=== PATIENT | female | born 1950 | race Caucasian/White ===

== ENCOUNTER 2021-08-19 21:55 | Inpatient (IN) | payer MEDICARE, OTHER ==
[2021-08-19] MEDS ORDERED: Sodium Chloride 0.9% 1,000 ML IV STA (22:04)
[2021-08-19] MEDS ORDERED: niCARdipine/Normal Saline 20 MG/200 ML BAG IV SCH (22:15)
[2021-08-19 22:40] LABS: BLOOD UREA NITROGEN,BUN 18 mg/dL (7.0-18.0); CARBON DIOXIDE,CO2 25.5 mmol/L (21.0-32.0); CHLORIDE,CL 102 mmol/L (98-107); GLUCOSE RANDOM 112 mg/dL (74-106); POTASSIUM,K 3.9 mmol/L (3.5-5.1); SODIUM,NA 144 mmol/L (136-145)
[2021-08-19 22:41] LABS: ESTIMATED GFR 54.5 ml/min
[2021-08-19] MEDS ORDERED: Iopamidol 755 MG/ML 500 ML Multipack Bottle IVPUSH STA (23:43)
[2021-08-20] MEDS ORDERED: Sodium Chloride 0.9% 2.5 ML Syringe FLUSH PRN (07:56)
[2021-08-20] MEDS ORDERED: Ondansetron 4 MG/2 ML SDV IVPUSH PRN (07:56)
[2021-08-20] MEDS ORDERED: Sodium Chloride 0.9% 10 ML Syringe FLUSH PRN (07:56)
[2021-08-20] MEDS ORDERED: Acetaminophen 325 MG Tab PO PRN (07:56)
[2021-08-20] MEDS ORDERED: Labetalol 100 MG/20 ML MDV IVPUSH PRN (07:58)
[2021-08-20 08:56] LABS: HEMOGLOBIN A1C 6.2 %
[2021-08-20] MEDS: Aspirin 81 MG Tab.Chew PO SCH (09:30)
[2021-08-20] MEDS: atorvaSTATin 40 MG Tab PO SCH (20:28)
[2021-08-20] MEDS: Enoxaparin 40 MG/0.4 ML Syringe SUBCUT SCH (20:28)
[2021-08-21] MEDS: Levothyroxine 75 MCG Tab PO SCH (06:43)
[2021-08-21 07:11] LABS: BLOOD UREA NITROGEN,BUN 20 mg/dL (7.0-18.0); CARBON DIOXIDE,CO2 26.6 mmol/L (21.0-32.0); CHLORIDE,CL 106 mmol/L (98-107); GLUCOSE RANDOM 105 mg/dL (74-106); SODIUM,NA 140 mmol/L (136-145)
[2021-08-21 07:18] LABS: ESTIMATED GFR > 60.0 ml/min
[2021-08-21] MEDS: Aspirin 81 MG Tab.Chew PO SCH (08:47)
[2021-08-21] MEDS: Clopidogrel 75 MG Tab PO SCH (11:55)
[2021-08-21] MEDS: Enoxaparin 40 MG/0.4 ML Syringe SUBCUT SCH (21:07)
[2021-08-21] MEDS: atorvaSTATin 40 MG Tab PO SCH (21:08)
[2021-08-22 05:58] LABS: BLOOD UREA NITROGEN,BUN 15 mg/dL (7.0-18.0); CARBON DIOXIDE,CO2 27.4 mmol/L (21.0-32.0); CHLORIDE,CL 106 mmol/L (98-107); GLUCOSE RANDOM 103 mg/dL (74-106); POTASSIUM,K 3.9 mmol/L (3.5-5.1); SODIUM,NA 141 mmol/L (136-145)
[2021-08-22 06:00] LABS: ESTIMATED GFR > 60.0 ml/min
[2021-08-22] MEDS: Levothyroxine 75 MCG Tab PO SCH (06:38)
[2021-08-22] MEDS: Clopidogrel 75 MG Tab PO SCH (08:22)
[2021-08-22] MEDS: Aspirin 81 MG Tab.Chew PO SCH (08:22)
[2021-08-22] MEDS: Losartan 50 MG Tab PO SCH (10:14)
[2021-08-22] MEDS: Hydrocortisone 1% Crm 30 GM Tube TOP PRN (17:02)
[2021-08-22] MEDS: Enoxaparin 40 MG/0.4 ML Syringe SUBCUT SCH (20:38)
[2021-08-22] MEDS: atorvaSTATin 40 MG Tab PO SCH (20:38)
[2021-08-23] MEDS: Levothyroxine 75 MCG Tab PO SCH (06:30)
[2021-08-23 07:46] LABS: BLOOD UREA NITROGEN,BUN 14 mg/dL (7.0-18.0); CARBON DIOXIDE,CO2 26.8 mmol/L (21.0-32.0); CHLORIDE,CL 107 mmol/L (98-107); GLUCOSE RANDOM 100 mg/dL (74-106); POTASSIUM,K 3.8 mmol/L (3.5-5.1); SODIUM,NA 142 mmol/L (136-145)
[2021-08-23 07:48] LABS: ESTIMATED GFR > 60.0 ml/min
[2021-08-23] MEDS: Clopidogrel 75 MG Tab PO SCH (08:21)
[2021-08-23] MEDS: Losartan 50 MG Tab PO SCH (08:21)
[2021-08-23] MEDS: Aspirin 81 MG Tab.Chew PO SCH (08:21)
[2021-08-23] MEDS: Hydrocortisone 1% Crm 30 GM Tube TOP PRN (12:21)
[2021-08-23] MEDS: atorvaSTATin 40 MG Tab PO SCH (20:09)
[2021-08-23] MEDS: Enoxaparin 40 MG/0.4 ML Syringe SUBCUT SCH (20:09)
[2021-08-24] MEDS: Levothyroxine 75 MCG Tab PO SCH (06:38)
[2021-08-24 07:07] LABS: BLOOD UREA NITROGEN,BUN 19 mg/dL (7.0-18.0); CARBON DIOXIDE,CO2 24.5 mmol/L (21.0-32.0); CHLORIDE,CL 105 mmol/L (98-107); GLUCOSE RANDOM 98 mg/dL (74-106); SODIUM,NA 139 mmol/L (136-145)
[2021-08-24 07:10] LABS: ESTIMATED GFR > 60.0 ml/min
[2021-08-24] MEDS: Aspirin 81 MG Tab.Chew PO SCH (09:33)
[2021-08-24] MEDS: Losartan 50 MG Tab PO SCH (09:34)
[2021-08-24] MEDS: Clopidogrel 75 MG Tab PO SCH (09:34)
[2021-08-24] MEDS: Hydrocortisone 1% Crm 30 GM Tube TOP PRN (09:35)
[2021-08-24] MEDS: atorvaSTATin 40 MG Tab PO SCH (21:52)
[2021-08-24] MEDS: Enoxaparin 40 MG/0.4 ML Syringe SUBCUT SCH (21:52)
[2021-08-25] MEDS: Levothyroxine 75 MCG Tab PO SCH ×2 (06:17→06:39)
[2021-08-25] MEDS: Losartan 50 MG Tab PO SCH (09:32)
[2021-08-25] MEDS: Aspirin 81 MG Tab.Chew PO SCH (09:32)
[2021-08-25] MEDS: Clopidogrel 75 MG Tab PO SCH (09:32)
[2021-08-25] MEDS: Enoxaparin 40 MG/0.4 ML Syringe SUBCUT SCH (21:01)
[2021-08-25] MEDS: atorvaSTATin 40 MG Tab PO SCH (21:01)
[2021-08-26] MEDS: Levothyroxine 75 MCG Tab PO SCH (06:48)
[2021-08-26] MEDS: Clopidogrel 75 MG Tab PO SCH (08:38)
[2021-08-26] MEDS: Losartan 50 MG Tab PO SCH (08:38)
[2021-08-26] MEDS: Aspirin 81 MG Tab.Chew PO SCH (08:38)
[2021-08-26] MEDS: atorvaSTATin 40 MG Tab PO SCH (21:25)
[2021-08-26] MEDS: Enoxaparin 40 MG/0.4 ML Syringe SUBCUT SCH (21:26)
[2021-08-27] MEDS: Levothyroxine 75 MCG Tab PO SCH (07:23)
[2021-08-27] MEDS: Aspirin 81 MG Tab.Chew PO SCH (09:13)
[2021-08-27] MEDS: Clopidogrel 75 MG Tab PO SCH (09:13)
[2021-08-27] MEDS: Losartan 50 MG Tab PO SCH (09:13)
[2021-08-27 15:32] LABS: CARBON DIOXIDE,CO2 27.7 mmol/L (21.0-32.0); POTASSIUM,K 4.3 mmol/L (3.5-5.1)
[2021-08-27 15:33] LABS: ESTIMATED GFR 48.8 ml/min
[2021-08-27] MEDS: Enoxaparin 40 MG/0.4 ML Syringe SUBCUT SCH (20:44)
[2021-08-27] MEDS: atorvaSTATin 40 MG Tab PO SCH (20:44)
[2021-08-28] MEDS: Levothyroxine 75 MCG Tab PO SCH (06:39)
[2021-08-28 07:21] LABS: BLOOD UREA NITROGEN,BUN 19 mg/dL (7.0-18.0); CARBON DIOXIDE,CO2 25.1 mmol/L (21.0-32.0); CHLORIDE,CL 101 mmol/L (98-107); GLUCOSE RANDOM 91 mg/dL (74-106); POTASSIUM,K 3.7 mmol/L (3.5-5.1); SODIUM,NA 134 mmol/L (136-145)
[2021-08-28 07:22] LABS: ESTIMATED GFR > 60.0 ml/min
[2021-08-28] MEDS: Aspirin 81 MG Tab.Chew PO SCH (10:42)
[2021-08-28] MEDS: Cephalexin 500 MG Cap PO SCH ×2 (10:42→21:39)
[2021-08-28] MEDS: Clopidogrel 75 MG Tab PO SCH (10:42)
[2021-08-28] MEDS: atorvaSTATin 40 MG Tab PO SCH (21:39)
[2021-08-29] MEDS: Levothyroxine 75 MCG Tab PO SCH (06:39)
[2021-08-29 07:13] LABS: BLOOD UREA NITROGEN,BUN 17 mg/dL (7.0-18.0); CARBON DIOXIDE,CO2 24.2 mmol/L (21.0-32.0); CHLORIDE,CL 101 mmol/L (98-107); GLUCOSE RANDOM 95 mg/dL (74-106); POTASSIUM,K 3.8 mmol/L (3.5-5.1); SODIUM,NA 133 mmol/L (136-145)
[2021-08-29 07:17] LABS: ESTIMATED GFR > 60.0 ml/min
[2021-08-29] MEDS ORDERED: Magnesium Sulfate/Water 2 GM in Premix Bag 1 BAG IV ONE (07:51)
[2021-08-29] MEDS: Clopidogrel 75 MG Tab PO SCH (09:21)
[2021-08-29] MEDS: Cephalexin 500 MG Cap PO SCH ×2 (09:21→20:21)
[2021-08-29] MEDS: Aspirin 81 MG Tab.Chew PO SCH (09:21)
[2021-08-29] MEDS: atorvaSTATin 40 MG Tab PO SCH (20:21)
[2021-08-30] MEDS: Levothyroxine 75 MCG Tab PO SCH (06:41)
[2021-08-30 07:20] LABS: BLOOD UREA NITROGEN,BUN 17 mg/dL (7.0-18.0); CARBON DIOXIDE,CO2 29.1 mmol/L (21.0-32.0); CHLORIDE,CL 104 mmol/L (98-107); GLUCOSE RANDOM 90 mg/dL (74-106); POTASSIUM,K 3.7 mmol/L (3.5-5.1); SODIUM,NA 140 mmol/L (136-145)
[2021-08-30 07:23] LABS: ESTIMATED GFR > 60.0 ml/min
[2021-08-30] MEDS: Cephalexin 500 MG Cap PO SCH ×2 (09:34→21:16)
[2021-08-30] MEDS: Aspirin 81 MG Tab.Chew PO SCH (09:34)
[2021-08-30] MEDS: Clopidogrel 75 MG Tab PO SCH (09:34)
[2021-08-30] MEDS: atorvaSTATin 40 MG Tab PO SCH (21:16)
[2021-08-31] MEDS: Levothyroxine 75 MCG Tab PO SCH (06:35)
[2021-08-31] MEDS: Cephalexin 500 MG Cap PO SCH ×2 (10:45→20:59)
[2021-08-31] MEDS: Losartan 50 MG Tab PO SCH (10:45)
[2021-08-31] MEDS: Clopidogrel 75 MG Tab PO SCH (10:45)
[2021-08-31] MEDS: Aspirin 81 MG Tab.Chew PO SCH (10:45)
[2021-08-31] MEDS: atorvaSTATin 40 MG Tab PO SCH (20:59)
[2021-09-01] MEDS: Levothyroxine 75 MCG Tab PO SCH (06:46)
[2021-09-01] MEDS: Aspirin 81 MG Tab.Chew PO SCH (08:34)
[2021-09-01] MEDS: Losartan 50 MG Tab PO SCH (08:35)
[2021-09-01] MEDS: Clopidogrel 75 MG Tab PO SCH (08:35)
[2021-09-01] MEDS: Cephalexin 500 MG Cap PO SCH ×2 (08:35→19:59)
[2021-09-01] MEDS: atorvaSTATin 40 MG Tab PO SCH (19:59)
[2021-09-02] MEDS: Levothyroxine 75 MCG Tab PO SCH (06:32)
[2021-09-02] MEDS: Aspirin 81 MG Tab.Chew PO SCH (11:19)
[2021-09-02] MEDS: Enoxaparin 40 MG/0.4 ML Syringe SUBCUT SCH (11:19)
[2021-09-02] MEDS: Clopidogrel 75 MG Tab PO SCH (11:19)
[2021-09-02] MEDS: Cephalexin 500 MG Cap PO SCH (11:19)
[2021-09-02] MEDS: Losartan 50 MG Tab PO SCH ×2 (11:20→11:26)
[2021-09-02] MEDS: atorvaSTATin 40 MG Tab PO SCH (20:25)
[2021-09-03] MEDS: Levothyroxine 75 MCG Tab PO SCH (06:31)
[2021-09-03] MEDS: Enoxaparin 40 MG/0.4 ML Syringe SUBCUT SCH (08:27)
[2021-09-03] MEDS: Clopidogrel 75 MG Tab PO SCH (08:27)
[2021-09-03] MEDS: Losartan 50 MG Tab PO SCH (08:27)
[2021-09-03] MEDS: Aspirin 81 MG Tab.Chew PO SCH (08:30)
== END 2021-09-03 14:05 | DRG 65 ==
LOC: MW.ED 21:55 → MW.MS 08-20 00:20 → OBSVTOIN 08-20 10:17 → MW.MS 08-20 13:34
PROVIDERS: ADMIT Internal Medicine; ATTEND Internal Medicine
DX: I63.9 Cerebral infarction, unspecified (principal); G81.91 Hemiplegia, unspecified affecting right dominant side; Z68.41 Body mass index [BMI] 40.0-44.9, adult; N39.0 Urinary tract infection, site not specified; R29.701 NIHSS score 1; Z79.890 Hormone replacement therapy; Z66 Do not resuscitate; Z51.5 Encounter for palliative care; Z20.822 Contact with and (suspected) exposure to COVID-19; I63.522 Cerebral infarction due to unspecified occlusion or stenosis of left anterior cerebral artery; R47.01 Aphasia; G31.84 Mild cognitive impairment of uncertain or unknown etiology; B95.61 Methicillin susceptible Staphylococcus aureus infection as the cause of diseases classified elsewhere; I10 Essential (primary) hypertension; E03.9 Hypothyroidism, unspecified; E66.01 Morbid (severe) obesity due to excess calories; Z79.82 Long term (current) use of aspirin; Z90.49 Acquired absence of other specified parts of digestive tract; Z79.899 Other long term (current) drug therapy; Z98.891 History of uterine scar from previous surgery
CPT/HCPCS: 36415; 70450; 70496; 70498; 71045; 80053; 80061; 80305; 80307; 81003; 83036; 84443; 84484; 85025; 85610; 85730; 93005; 93306; 96360; 96361 ×2; 99285; A9270; J7030; Q9967; U0002; 70551; 70551-26; 80048; 81001; 81240; 83735; 85300; 85301; 85302; 85303; 85305; 85306; 85613; 86147; 87086; 87088; 87186; 92507-GN; 92523-GN-52; 93010; 93307; 97110-GP; 97112-GP; 97116-GP; 97140-GP; 97162-GP; 97166-GO; 97530-GP; 97542-GP; 99223; 99231; 99232; 99233; 99239; J1650; J3475

== ENCOUNTER 2023-06-24 14:36 | Emergency (ER) | payer BC, MEDICARE ==
[2023-06-24] MEDS ORDERED: Sodium Chloride 0.9% 2.5 ML Syringe FLUSH PRN (14:39)
[2023-06-24] MEDS ORDERED: Sodium Chloride 0.9% 10 ML Syringe FLUSH PRN (14:39)
[2023-06-24 14:54] LABS: BASOPHILS ABSOLUTE AUTO 0.01 K/uL (0.00-0.20); BASOPHILS PERCENT AUTO 0.2 % (0.0-1.0); EOSINOPHILS ABSOLUTE AUTO 0.02 K/uL (0.00-0.45); EOSINOPHILS PERCENT AUTO 0.3 % (0.0-6.0); HEMATOCRIT 36.5 % (37.0-47.0); HEMOGLOBIN 12.1 g/dL (12.0-16.0); IMMATURE GRAN ABSOLUTE AUTO 0.03 K/uL (0.00-0.05); IMMATURE GRAN PERCENT AUTO 0.5 % (0.0-0.4); LYMPHOCYTES ABSOLUTE AUTO 1.14 K/uL (1.00-4.80); LYMPHOCYTES PERCENT AUTO 17.7 % (24.0-44.0); MEAN CORPUSCULAR HEMOGLOBIN 31.3 pg (28.0-32.0); MEAN CORPUSCULAR HGB CONC 33.2 g/dL (32.0-36.0); MEAN CORPUSCULAR VOLUME 94.6 fL (83.0-99.0); MEAN PLATELET VOLUME 10.7 fL (9.4-12.3); MONOCYTES ABSOLUTE AUTO 0.62 K/uL (0.00-0.80); MONOCYTES PERCENT AUTO 9.6 % (0.0-8.0); NEUTROPHILS ABSOLUTE AUTO 4.63 K/uL (1.80-7.70); NEUTROPHILS PERCENT AUTO 71.7 % (41.0-71.0); PLATELET COUNT,PLT 148 K/uL (150-400); RED BLOOD CELL COUNT 3.86 M/uL (4.10-5.30); WHITE BLOOD CELL COUNT,WBC 6.45 K/uL (3.9-11.3)
[2023-06-24 15:25] LABS: APPEARANCE,URINE CLEAR; BILIRUBIN,URINE NEGATIVE (NEGATIVE); GLUCOSE,URINE NEGATIVE (NEGATIVE); KETONES,URINE TRACE mg/dL (NEGATIVE); LEUKOCYTE ESTERASE,URINE NEGATIVE (NEGATIVE); NITRITE,URINE NEGATIVE (NEGATIVE); OCCULT BLOOD,URINE NEGATIVE (NEGATIVE); PROTEIN,URINE NEGATIVE (NEGATIVE)
[2023-06-24 15:34] LABS: A/G RATIO 0.6 (0.9-1.6); ALBUMIN 2.7 g/dL (3.4-5.0); BILIRUBIN TOTAL 0.2 mg/dL (0.2-1.0); CALCIUM 8.9 mg/dL (8.5-10.1); CARBON DIOXIDE,CO2 31.5 mmol/L (21.0-32.0); CREATININE 0.8 mg/dL (0.6-1.0); TSH ULTRASENSITIVE 4.25 uIU/mL (0.36-3.74)
[2023-06-24 15:38] LABS: COLOR,URINE YELLOW
[2023-06-24 15:51] LABS: T4 FREE 0.93 ng/dL (0.76-1.46)
== END 2023-06-24 17:18 | disposition home or self-care (01) ==
LOC: MW.ED 14:36
DX: F03.911 Unspecified dementia, unspecified severity, with agitation (principal); E78.00 Pure hypercholesterolemia, unspecified; I10 Essential (primary) hypertension; E03.9 Hypothyroidism, unspecified; E66.9 Obesity, unspecified; Z75.8 Other problems related to medical facilities and other health care; Z68.25 Body mass index [BMI] 25.0-25.9, adult; Z79.82 Long term (current) use of aspirin; Z79.899 Other long term (current) drug therapy; Z90.49 Acquired absence of other specified parts of digestive tract
CPT/HCPCS: 36415; 70450; 70450-26; 71045; 71045-26; 80053; 81003; 84439; 84443; 84484; 85025; 99285